=== PATIENT | male | born 1970 | race Caucasian/White ===

== ENCOUNTER 2018-08-28 06:20 | Day surgery (SDC) | payer OTHER ==
[~2018-08-28 06:20] MED LIST: COZAAR100 MG PO; INSULIN SYRING1 EA26 SUBCUTANEO; LANTUS SOL100 UNIT/1 SUBCUTANEO; METFORMIN HCL1000 M1 PO; XARELTO20 MG PO
== END 2018-08-28 13:00 | disposition home or self-care (01) ==
LOC: CIR.AMB 06:20
DX: L72.0 Epidermal cyst (principal)